=== PATIENT | male | born 1995 | race Caucasian/White ===

== ENCOUNTER 2020-06-13 03:32 | Emergency (ER) | payer SELFPAY ==
[~2020-06-13] VITALS: Ht 165.1 cm; Wt 75.4 kg
[2020-06-13 03:43] VITALS: Ht 165.1 cm; Wt 75.4 kg
[2020-06-13 06:13] VITALS: BP 114/75
== END 2020-06-13 06:05 | disposition home or self-care (01) ==
LOC: ED 03:32
DX: S01.01XA Laceration without foreign body of scalp, initial encounter (principal); W01.0XXA Fall on same level from slipping, tripping and stumbling without subsequent striking against object, initial encounter; Y93.89 Activity, other specified; Y92.89 Other specified places as the place of occurrence of the external cause; Y99.8 Other external cause status
CPT/HCPCS: J2001